=== PATIENT | female | born 1945 | race Caucasian/White ===

== ENCOUNTER 2017-04-29 06:50 | Day surgery (SDC) | payer OTHER ==
[~2017-04-29] VITALS: Ht 157.5 cm; Wt 72.6 kg
[~2017-04-29 06:50] MED LIST: ADULT LOW DOSE81 MG PO; BIOTIN1 M1 PO; CALCIUM 1,0001 EACH PO
--- NOTE | 2017-04-29 08:29 | NUR ---
UP TO BR RETURNED TO BED. IV PATENT.
--- NOTE | 2017-04-29 09:09 | NUR ---
04/29/17 0909 Yumiko Parry 0856 - PT ARRIVED TO PACU. RESPONDS TO STIMULI, MAINTAINING OWN AIRWAY
--- NOTE | 2017-04-29 11:50 | NUR ---
LE 1140: DC INSTRUCTIONS GIVEN TO PATIENT AND SHE VERBALIZES UNDERSTANDING.
--- NOTE | 2017-04-29 14:04 | NUR ---
PT RESTING IN BED, ALERT AND ORIENTED. HAS HAD SURGERY ON R EAR, NOW THIS ON LEFT. SHE IS AFRAID SHE IS LOSING HER HEARING AND REQUESTED PRAYER FOR HEALING. PT HONEST ABOUT HER APPREHENSIONS, FEELS VERY COMFORTABLE WITH DR KYLE. SHE MENTIONED THAT SHE IS NOT READY TO RETIRE-SHE WANTS TO KEEP ON WORKING. GOD BLESS HER
--- NOTE | 2017-05-27 09:33 | OR ---
[facility] [address] [facility] [place], [place] [address] Signed DATE OF PROCEDURE: 04/29/17 PREOPERATIVE DIAGNOSIS: Left tympanic membrane perforation. POSTOPERATIVE DIAGNOSIS: Left tympanic membrane perforation. PROCEDURE PERFORMED: Left paper patch myringoplasty. SURGEON: Chuckie Kyle MD ANESTHESIA: General LMA; Maida Delong CRNA. PREOPERATIVE HISTORY Maribel is a 71-year-old lady with a long history of ear problems. She had a tympanoplasty on the right ear several years ago. 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 She was taken the operating for the above-mentioned procedure. OPERATIVE PROCEDURE AND FINDINGS After informed consent, the patient was taken to the operating room, placed in the supine position where general orotracheal anesthesia was induced. The patient and procedure were verified. The left ear was examined with the operating microscope. There was a small central perforation approximately 10% of the eardrum, healthy middle ear mucosa. Concentrated phenol was applied to the edge of the perforation and a good lanny was obtained. Paper patch was obtained and placed over the perforation with excellent closure, cotton ball to the meatus. The patient was then awakened, extubated, transported to recovery in good condition. No complications. BLOOD LOSS: None. SPECIMENS: None. DRAINS: None. Chuckie Kyle MD GC/Modl Electronically Signed By: CHUCKIE KYLE MD 05/27/17 0933 PATIENT NAME: MARIBEL COTO OPERATIVE REPORT DATE OF : 49 PHYSICIAN: CHUCKIE KYLE MD REPORT #: [id number] REPORT IS CONFIDENTIAL AND NOT TO BE RELEASED WITHOUT AUTHORIZATION [address] [address] Signed /[id number] cc: Danilo Bee MD Electronically Signed By: CHUCKIE KYLE MD 05/27/17 0933 PATIENT NAME: MARIBEL COTO OPERATIVE REPORT DATE OF : 49 PHYSICIAN: CHUCKIE KYLE MD REPORT #: [id number] REPORT IS CONFIDENTIAL AND NOT TO BE RELEASED WITHOUT AUTHORIZATION
== END 2017-04-29 11:50 | disposition home or self-care (01) ==
LOC: DS 06:50
PROVIDERS: Otolaryngology
PROC: 09Q80ZZ Repair Left Tympanic Membrane, Open Approach (ICD-10-PCS; principal; 2017-04-29 07:45)
DX: H72.02 Central perforation of tympanic membrane, left ear (principal); F32.9 Major depressive disorder, single episode, unspecified; Z98.890 Other specified postprocedural states
CPT/HCPCS: 00126; J1100; J2250; J2405; J2704; J3010; J7120

== ENCOUNTER 2025-08-22 07:06 | Inpatient (IN) | payer MEDICARE, OTHER ==
[~2025-08-22] VITALS: Ht 157.5 cm; Wt 73.6 kg
[2025-08-22] MEDS ORDERED: HYDROCODONE/ACETA 5/325 TAB PO ONE ×2 (10:00→17:45)
[2025-08-22] MEDS ORDERED: ONDANSETRON 4 MG TAB ODT SL ONE (10:00)
[2025-08-22] MEDS ORDERED: HYDROCODON-ACE1 EA10 PO (10:24)
[2025-08-22] MEDS ORDERED: CYCLOBENZAPRINE HCL 10 MG TAB PO ONE (10:45)
[2025-08-22 19:33] LABS: BASOPHILS 0.7 % (0.1-1.2); EOSINOPHILS 0.5 % (0.7-5.8); LYMPHOCYTES 14.1 % (19.3-51.7); MCH 28.4 PG (25.6-32.2); MCHC 31.9 g/dL (32.2-35.5); MCV 89.1 fL (79.4-94.8); MONOCYTES 6.7 % (4.7-12.5); NEUTROPHILS 77.8 % (34.0-71.1); RBC 4.58 M/uL (3.93-5.22)
[2025-08-22 19:56] LABS: ALT (SGPT) 17.0 U/L (14-59); AST (SGOT) 20.0 U/L (15-37); GLOMERULAR FILTRATION RATE,EST 85.0 mL/min (>60); PROTEIN, TOTAL 6.7 g/dL (6.4-8.2); UREA NITROGEN 9.0 mg/dL (7-18)
[2025-08-22] MEDS ORDERED: ACETAMINOPHEN 325 MG TAB PO PRN (20:15)
[2025-08-22] MEDS ORDERED: HYDROCODONE/ACETA 5/325 TAB PO PRN ×2 (20:15→23:45)
[2025-08-22 20:53] VITALS: BP 175/89
[2025-08-22] MEDS ORDERED: ADVIL200 MG PO (21:11)
--- NOTE | 2025-08-22 21:43 | NUR ---
pt ARRIVES TO MS FLOOR VIA STRETCHER, TRANSFERRED TO HOSPITAL BED WITH SLIDE SHEET. VS COMPLETE. TWO RN SKIN ASSESSMENT COMPLETE, SCAB NOTED ON RIGHT [place], SKIN OTHERWISE INTACT. pt [place], HAS HEARING AIDE IN RIGHT EAR ONLY. TRAINMASTER IN ROOM. PURSE PLACED IN LOCK BOX. ORIENATATION TO ROOM PROVIDED, CALL LIGHT IN REACH. 2PA TO TURN AND REPOSITION pt, PLACED ON BED MUNROE FOR LARGE VOID AND OFF MUNROE, SANJEEV CARE COMPLETE. PUREWICK PLACED. pt UNABLE TO AMBULATE DUE TO PAIN IN LEFT HIP AND "SPASMS". EDUCATION PROVIDED. BED IN LOW POSITION.
[2025-08-22] MEDS ORDERED: POTASSIUM CHLORIDE 10 MEQ TABCR PO ONE (23:00)
[2025-08-22] MEDS ORDERED: CYCLOBENZAPRINE HCL 10 MG TAB PO PRN (23:45)
[2025-08-23] VITALS (12 sets, daily range): BP systolic 95–148; BP diastolic 48–103
--- NOTE | 2025-08-23 00:01 | NUR ---
Patient arrived to the unit on 08/22/25 at approx 2044. Patient was a 3 person transfer with slide sheet. Patient able to answer orientation questions but is TLINGIT & HAIDA with hearing devices in place. Patient is a poor historian. Patient oriented to room, call light and bed controls. Patient's skin is intact. Patient states she is occasionally incontinent of both bowel and bladder. Periwick placed per patient request as she has 9/10-10/10 pain with any movement. Call light within reach. Bed locked and in the lowest position.
[2025-08-23] MEDS ORDERED: POTASSIUM CHLORIDE 10 MEQ TABCR ONE (04:10)
[2025-08-23 05:52] LABS: BASOPHILS 0.8 % (0.1-1.2); EOSINOPHILS 2.3 % (0.7-5.8); LYMPHOCYTES 25.3 % (19.3-51.7); MCH 28.9 PG (25.6-32.2); MCHC 33.7 g/dL (32.2-35.5); MCV 85.9 fL (79.4-94.8); MONOCYTES 6.9 % (4.7-12.5); NEUTROPHILS 64.4 % (34.0-71.1); RBC 4.25 M/uL (3.93-5.22)
[2025-08-23 06:22] LABS: ALT (SGPT) 18.0 U/L (14-59); AST (SGOT) 21.0 U/L (15-37); GLOMERULAR FILTRATION RATE,EST 83.0 mL/min (>60); PHOSPHORUS, INORGANIC 3.7 mg/dL (2.5-4.9); PROTEIN, TOTAL 6.3 g/dL (6.4-8.2); UREA NITROGEN 9.0 mg/dL (7-18)
--- NOTE | 2025-08-23 07:20 | NUR ---
REPORT RECEIVED FROM ANTHONY GASCA. PATIENT RESTING IN BED TALKING ON HER PHONE AND IS WITHOUT ANY NEEDS AT THIS TIME. CALL LIGHT AND PERSONAL BELONGINGS ARE WITHIN REACH. WHITE BOARD UPDATED.
[2025-08-23] MEDS ORDERED: ENOXAPARIN SODIUM 40 MG/0.4 ML SYR SUB-Q SCH (09:00)
--- NOTE | 2025-08-23 09:12 | NUR ---
V.S. AND I&O DOCUMENTED. PATIENT BRUSHED THEIR TEETH AND WASHED THEIR FACE WITH SET UP ASSISTANCE FROM THIS LEARNING DISABILITIES RESOURCE TEACHER. FRESH ICE WATER PROVIDED.
--- NOTE | 2025-08-23 09:55 | NUR ---
PATIENT MEDICATED PER EMAR. PATIENT IS SITTING UP IN BED AND STATES SHE WOULD LIKE TO GET UP "TO SEE IF I CAN DO IT CAUSE YESTERDAY I WASN'T ABLE TO DO IT." PATIENT STATES SHE WOULD LIKE TO WAIT FOR A BIT UNTIL MEDICATIONS TAKE EFFECT AND THAT SHE WILL CALL STAFF WHEN SHE IS READY. PATIENT IS WITHOUT FURTHER NEEDS AT THIS TIME. CALL LIGHT AND PERSONAL BELONGINGS ARE WITHIN REACH. PATIENT ASSESSMENT COMPLETED.
--- NOTE | 2025-08-23 11:00 | NUR ---
ANTHONY CHAMBERS AND VELVET LOYD ASSISTED PATIENT OFF BEDPAN
--- NOTE | 2025-08-23 11:25 | NUR ---
PATIENT PLACED ON BEDPAN BY THIS RN AND VELVET VANEGAS. PATIENT SAT UP AND STATES SHE WILL CALL WHEN SHE IS FINISHED. CALL LIGHT AND PERSONAL BELONGINGS ARE WITHIN REACH.
[2025-08-23] MEDS ORDERED: PHARMACY RENAL DOSE ADJUSTMENT 1 DOSE MISC PO SCH (12:00)
--- NOTE | 2025-08-23 12:20 | NUR ---
PATIENT SITTING UP IN BED EATING LUNCH WITH HER SON AT BEDSIDE. PATIENT DENIES ANY NEEDS AT THIS TIME. CALL LIGHT AND PERSONAL BELONGINGS ARE WITHIN REACH.
--- NOTE | 2025-08-23 13:10 | NUR ---
PATIENT RESTING IN BED AND IS WITHOUT ANY NEEDS AT THIS TIME. CALL LIGHT AND PERSONAL BELONGINGS ARE WITHIN REACH.
--- NOTE | 2025-08-23 14:57 | NUR ---
PATIENT SITTING UP IN BED ON HER PHONE AND IS WITHOUT ANY NEEDS AT THIS TIME. CALL LIGHT AND PERSONAL BELONGINGS ARE WITHIN REACH.
--- NOTE | 2025-08-23 15:00 | NUR ---
Spoke with pt for a lengthy visit. She is a friend of a friend. Pt recognizes this RN. Pt's memory is poor. She discusses she has been living alone and does well. However, per therapy, pt is unable to hold herself upright in the bed and is unable to walk. Pt states she is very painful on her L side. She also has right sided weakness. Pt does state she had polio as a child. She did not tell the as she states she is a private person. I let her know this is something we really need to let the know and she does agree. Pt declines a SNF and wants to go home to her house. She states her nephew is not working and he will stay with her. Pt states she has 1 step into her home and has grab bars throughout. She has a walker and cane. Will discuss this pt tomorrow with the oncoming physician.
--- NOTE | 2025-08-23 15:10 | NUR ---
VELVET MAYFIELD WALKED INTO PATIENT ROOM TO MEASURE V.S. AND I&O. VELVET MAYFIELD REMOVED LUNCH PLATE FROM BEDROOM AND ORGANIZED ROOM. PATIENT STATED NO FURTHER NEEDS, CALL LIGHT WITHIN REACH.
--- NOTE | 2025-08-23 15:55 | NUR ---
PATIENT RESTING IN BED ON HER PHONE AND DENIES ANY NEEDS AT THIS TIME. CALL LIGHT AND PERSONAL BELONGINGS ARE WITHIN REACH.
[2025-08-23] MEDS ORDERED: TYLENOL EXTRA500 MG PO (16:03)
--- NOTE | 2025-08-23 16:03 | NUR ---
MED REC COMPLETE
--- NOTE | 2025-08-23 16:28 | NUR ---
Spoke with pts friend/emergency contact. Pt. was able to walk and get in and out of her home without assistance. Friend states she would assist her in and out of the car and would walk with her. Kelsea states pt had fall and did not tell anyone. She has not been able to move or get around since. She came to the hospital by ambulance. This is a major change from pts baseline. Will pass this info onto Dr. Shultz.
--- NOTE | 2025-08-23 18:09 | NUR ---
PATIENT MEDICATED PER EMAR. PATIENT IS WITHOUT FURTHER NEEDS AT THIS TIME. CALL LIGHT AND PERSONAL BELONGINGS ARE WITHIN REACH.
--- NOTE | 2025-08-23 19:52 | NUR ---
Patient sitting up in bed with family at bedside. Patient reports some relief of pain with Tylenol given by prior nurse, but states "it's still creeping." Patient would like to wait for her family to leave before taking additional medications. Provided fresh ice water and assisted patient to reposition in bed. Reviewed POC with patient and family- all questions currently answered. Call light within reach. Bed locked and in the lowest position.
--- NOTE | 2025-08-23 20:45 | NUR ---
VS OBTAINED. I&O'S DOCUMENTED. ROOM TIDIED. NO OTHER NEEDS OR CONCERNS AT THIS TIME. CALL LIGHT WITHIN REACH.
[2025-08-24] VITALS (7 sets, daily range): BP systolic 145–167; BP diastolic 83–94
--- NOTE | 2025-08-24 07:00 | NUR ---
REPORT RECEIVED FROM ANTHONY GASCA. PATIENT RESTING IN BED WITH HER EYES CLOSED. EVEN AND UNLABORED RESPIRATIONS NOTED. CALL LIGHT AND PERSONAL BELONGINGS ARE WITHIN REACH.
[2025-08-24 08:25] LABS: GLOMERULAR FILTRATION RATE,EST 89.0 mL/min (>60); UREA NITROGEN 11.0 mg/dL (7-18)
--- NOTE | 2025-08-24 08:52 | NUR ---
PATIENT MEDICATED PER EMAR. PATIENT IS EATING BREAKFAST AND WATCHING TV. PATIENT IS WITHOUT FURTHER NEEDS AT THIS TIME. CALL LIGHT AND PERSONAL BELONGINGS ARE WITHIN REACH.
--- NOTE | 2025-08-24 09:00 | NUR ---
Spoke with pts nephew Mathew. He states he is willing to help his Aunt as much as needed. She must be able to walk before she returns home. I let him know I will speak with her about a SNF today and update her.
--- NOTE | 2025-08-24 10:00 | NUR ---
Spoke with pt. Updated about my talk with her Mathew. She is now agreeable to placement. She would like her chart sent to , [facility], and [facility]. We discussed she needs a 3 night stay before she can admit to a SNF. As it is [place], SNFs are not accepting new pts until Friday. She denies further needs at this time.
--- NOTE | 2025-08-24 10:00 | NUR ---
VELVET VANEGAS IN ROOM ASSISTING PATIENT WITH BEDPAN.
--- NOTE | 2025-08-24 10:28 | NUR ---
PATIENT INDEPENDENTLY BRUSHED THEIR TEETH AND WASHED THEIR FACE WITH SET UP ASSISTANCE. 2PA OFF THE BED MUNROE. SANJEEV CARE DONE AND NEW PUREWICK PLACED AT 1030.
--- NOTE | 2025-08-24 10:30 | NUR ---
Nephew here and has questions. To room and updated I will send the chart to [facility], and [facility] at pts request. She has had family in all three. Will FU on Friday for placement. Pts first choice is [facility]. Pt has to have a 3 night IP stay for medicare to pay for rehab. Pt cont. to c/o of severe pain in her L back and leg. She will work with PT today,but had difficulty sitting with their assistance yesterday.
--- NOTE | 2025-08-24 11:25 | NUR ---
PATIENT MEDICATED PER EMAR. PATIENT'S NEPHEW AT BEDSIDE. PATIENT REPORTS NOT BEING ABLE TO HAVE A BOWEL MOVEMENT AT THIS TIME, BUT DENIES BOWEL CARE MEDICATIONS. PATIENT STATES SHE NORMALLY HAS A BOWEL MOVEMENT DAILY, BUT ALSO HAS NOT BEEN EATING MUCH AND IS NOT SURPRISED SHE HASN'T HAD A BM. PATIENT EDUCATED THAT SHE IS ALSO TAKING PAIN MEDICATION WHICH CAN CAUSE CONSTIPATION. PATIENT STATES SHE WILL TAKE BOWEL CARE MEDICATIONS IF SHE HAS NOT HAD A BOWEL MOVEMENT BY TOMORROW MORNING. PATIENT IS WITHOUT FURTHER NEEDS AT THIS TIME. CALL LIGHT AND PERSONAL BELONGINGS ARE WITHIN REACH.
--- NOTE | 2025-08-24 12:15 | NUR ---
PATIENT SITTING UP IN BED EATING LUNCH WITH FAMLILY AT BEDSIDE. PATIENT DENIES ANY NEEDS AT THIS TIME. CALL LIGHT AND PERSONAL BELONGINGS ARE WITHIN REACH.
--- NOTE | 2025-08-24 13:51 | NUR ---
PATIENT SITTING UP IN BED AND DENIES ANY NEEDS AT THIS TIME. CALL LIGHT AND PERSONAL BELONGINGS ARE WITHIN REACH.
--- NOTE | 2025-08-24 16:27 | NUR ---
PATIENT REQUESTING TO USE THE BEDPAN. THIS RN AND VELVET DE LA ROSA IN ROOM ASSISTING PATIENT. PATIENT PLACED ON BEDPAN AND STATES SHE WILL CALL WHEN SHE IS FINISHED. CALL LIGHT AND PERSONAL BELONGINGS ARE WITHIN REACH.
--- NOTE | 2025-08-24 17:43 | EKG ---
[facility] [address] [facility] [place], [place] [address] Signed Normal sinus rhythm Normal ECG No previous ECGs available Confirmed by Clovis Wright DO ([id number]) on 08/24/2025 5:42:50 PM Electronically Signed By: CLOVIS WRIGHT DO 08/24/25 1743 PATIENT NAME: INDY COTO Electrocardiogram DATE OF : 49 PHYSICIAN: CLOVIS WRIGHT DO REPORT #: [id number] REPORT IS CONFIDENTIAL AND NOT TO BE RELEASED WITHOUT AUTHORIZATION
[2025-08-24] MEDS ORDERED: LABETALOL HCL 20 MG/4 ML VIAL IV PRN (18:15)
--- NOTE | 2025-08-24 18:20 | NUR ---
REPORT RECEIVED FROM ANTHONY COLE. PATIENT SITTING UP IN CHAIR, RESPIRATIONS EVEN AND UNLABORED. PATIENT REPORTS HER PAIN HAS IMPROVED SINCE KELSEY GAVE PAIN MEDICATION, SHE RATES IT 6/10. SHE DENIES ANY NEEDS, CALL LIGHT IN REACH
--- NOTE | 2025-08-24 19:40 | NUR ---
VS OBTAINED AND RECORDED. PATIENT BACK TO BED FROM CHAIR VIA APRIL LIFT, X2 PERSON ASSIST. ASSESSMENT COMPLETE. RESPIRATIONS EVEN AND UNLABORED. PATIENT REPORTS 5/10 PAIN, GIVEN FRESH WATER, DENIES ANY NEEDS, CALL LIGHT IN REACH
--- NOTE | 2025-08-24 23:17 | NUR ---
ROUNDED ON PATIENT, RESPIRAITONS EVEN AND UNLABORED. PRN PAIN MEDICATION GIVEN TO PATIENT PER REQUEST FOR 5/10 PAIN. NO FURTHER NEEDS, CALL LIGHT IN REACH
[2025-08-25] VITALS (8 sets, daily range): BP systolic 104–153; BP diastolic 62–101
--- NOTE | 2025-08-25 01:40 | NUR ---
ROUNDED ON PATIENT, RESTING WITH EYES CLOSED, RESPIRATIONS EVEN AND UNLABORED. NO NEEDS, CALL LIGHT IN REACH
--- NOTE | 2025-08-25 02:55 | NUR ---
ROUNDED ON PATIENT, PATIENT RESTING WITH EYES CLOSED, RESPIRATIONS EVEN AND UNLABORED. NO NEEDS, CALL LIGHT IN REACH
--- NOTE | 2025-08-25 05:33 | NUR ---
ROUNDED ON PATIENT, VS OBTAINED AND RECORDED. PRN TYLENOL GIVEN PER REQUEST FOR 6/10 PAIN. PLACED ON BED MUNROE TO HAVE BOWEL MOVEMENT PER REQUEST OF PATIENT. FRESH WATER PROVIDED. NO OTHER NEEDS
--- NOTE | 2025-08-25 07:00 | NUR ---
REPORT RECEIVED FROM ANTHONY BONNER. PATIENT RESTING IN BED AND REPORTS PAIN IN HER LEFT LEG. PATIENT MEDICATED PER EMAR. PATIENT DENIES FURTHER NEEDS AT THIS TIME. CALL LIGHT AND PERSONAL BELONGINGS ARE WITHIN REACH.
--- NOTE | 2025-08-25 07:30 | NUR ---
THIS DRUM PLATER IN TO DO MORNING ROUNDS. PATIENT STATES SHE IS WET. SANJEEV CARE, SKIN CARE, AM CARE, LINEN CHANGE DONE. PATIENT SET UP FOR BREAKFAST. WHITEBOARD UPDATED. CALL LIGHT IN REACH. NO FURTHER NEEDS AT THIS TIME.
--- NOTE | 2025-08-25 08:45 | NUR ---
PATIENT MEDICATED PER EMAR. PATIENT RESTING IN BED AND DENIES FURTHER NEEDS AT THIS TIME. CALL LIGHT AND PERSONAL BELONGINGS ARE WITHIN REACH. PATIENT ASSESSMENT COMPLETED.
--- NOTE | 2025-08-25 09:52 | NUR ---
PATIENT IN BED WATCHING TV AT THIS TIME. VITALS AND I&O'S DONE AND CHARTED. CALL LIGHT IN REACH. FRESH WTER GIVEN. NO FURTHER NEEDS AT THIS TIME.
--- NOTE | 2025-08-25 10:05 | NUR ---
PATIENT RESTING IN BED ON HER PHONE AND IS WITHOUT ANY NEEDS AT THIS TIME. CALL LIGHT AND PERSONAL BELONGINGS ARE WITHIN REACH.
--- NOTE | 2025-08-25 12:21 | NUR ---
PATIENT SITTING UP IN BED EATING LUNCH. FRESH ICE WATER AND ICE PROVIDED FOR PATIENT'S PERSONAL SODA. PATIENT IS WITHOUT FURHTER NEEDS AT THIS TIME. CALL LIGHT AND PERSONAL BELONGINGS ARE WITHIN REACH.
[2025-08-25] MEDS ORDERED: GABAPENTIN 300 MG CAP PO SCH (15:00)
--- NOTE | 2025-08-25 15:22 | NUR ---
PATIENT MEDICATED PER EMAR. PATIENT SITTING UP IN BED TALKING ON HER PHONE AND IS WITHOUT ANY NEEDS AT THIS TIME. CALL LIGHT AND PERSONAL BELONGINGS ARE WITHIN REACH.
--- NOTE | 2025-08-25 16:45 | NUR ---
PATIENT RESTING IN BED WITH VISITORS AT BEDSIDE. PATIENT IS WITHOUT ANY NEEDS AT THIS TIME. CALL LIGHT AND PERSONAL BELONGINGS ARE WITHIN REACH.
--- NOTE | 2025-08-25 19:45 | NUR ---
VERBAL REPORT RECEIVED FROM KELSEY CRUZ. PATIENT IS RESTING IN BED AWAKE AT THIS TIME. DENIES ANY NEEDS AT THIS TIME. CALL LIGHT WITHIN REACH.
--- NOTE | 2025-08-25 20:54 | NUR ---
ETHYLENE PLANT OPERATOR OBTAINED VITALS AND I&O. PT STATES NO NEEDS AT THIS TIME. CALL LIGHT WITHIN REACH.
[2025-08-25] MEDS ORDERED: POLYETHYLENE GLYCOL 3350 1 PACKET PO SCH (21:00)
[2025-08-25] MEDS ORDERED: SENNOSIDES/DOCUSATE 1 EA TAB PO SCH (21:00)
--- NOTE | 2025-08-25 21:29 | NUR ---
ASSESSMENT COMPLETE. PATIENT COMPLAINS OF 6/10 LEFT LEG PAIN, PRN PAIN MEDICATION GIVEN (SEE EMAR). FRESH ICE WATER PROVIDED PER PATIENT REQUEST. PATIENT IS AWAKE AND ALERT, SITTING UP WATCHING TV. NO FURTHER NEEDS AT THIS TIME. CALL LIGHT WITHIN REACH.
[2025-08-26] VITALS (8 sets, daily range): BP systolic 126–150; BP diastolic 78–92
--- NOTE | 2025-08-26 00:03 | NUR ---
PATIENT IS RESTING IN BED EYES CLOSED, RESPIRATIONS EVEN AND UNLABORED. CALL LIGHT WITHIN REACH. NO NEEDS AT THIS TIME.
--- NOTE | 2025-08-26 02:11 | NUR ---
PATIENT RESTING IN BED EYES CLOSED AT THIS TIME, RESPIRATIONS EVEN AND UNLABORED. NO NEEDS AT THIS TIME. CALL LIGHT WITHIN REACH.
--- NOTE | 2025-08-26 04:35 | NUR ---
PATIENT CALLS COMPLAINING OF 8/10 LLE PAIN, PRN PAIN MEDICATION GIVEN (SEE EMAR). NO FURTHER NEEDS AT THIS TIME. CALL LIGHT WITHIN REACH.
--- NOTE | 2025-08-26 05:17 | NUR ---
PATIENT IS RESTING IN BED EYES CLOSED, RESPIRATIONS EVEN AND UNLABORED. CALL LIGHT WITHIN REACH.
--- NOTE | 2025-08-26 05:21 | NUR ---
PATIENT RESTING IN BED AT THIS TIME EYES CLOSED RESPIRATIONS EVEN AND UNLABORED. NO NEEDS AT THIS TIME. CALL LIGHT WITHIN REACH.
--- NOTE | 2025-08-26 05:27 | NUR ---
NETWORK DESKTOP SUPPORT SPECIALIST OBTAINED VITALS AND I&O. PT STATES NO NEEDS AT THIS TIME. CALL LIGHT WITHIN REACH AND BED ALARM ON.
--- NOTE | 2025-08-26 05:39 | NUR ---
NEW PUREWICK PLACED, SANJEEV CARE PERFROMED. FRESH ICE WATER PROVIDED. NO FURTHER NEEDS AT THIS TIME. PATIENT IS SITTIN GUP IN BED WATCHING TV. CALL LIGHT WITHIN REACH.
--- NOTE | 2025-08-26 06:19 | NUR ---
PATIENT BLADDER SCANNED DUE TO LOW URINE OUTPUT, 650ML NOTED. PATIENT ENCOURAGED TO USE BEDSIDE COMMODE. PATIENT URINATED 40OML IN PUREWICK CANISTER. ENCOURAGED PATIENT TO CONTINUE TO TRY TO URINATE. CALL LIGHT WITHIN REACH. BED ALARM ON FOR PATIENT SAFETY. PATIENT SITTING UP IN BED AT THIS TIME.
--- NOTE | 2025-08-26 07:15 | NUR ---
RECIEVED REPORT FROM ANTHONY TAPIA. PT IS RESTING IN BED WITH EYES CLOSED, RR EVEN AND UNLABORED. CALL LIGHT AND PERSONAL BELONGINGS ARE WITHIN REACH.
--- NOTE | 2025-08-26 09:04 | NUR ---
PT SITTING UP IN BED WITH BREAKFAST TRAY. MORNING MEDICATIONS ADMINISTRED PER THE EMAR. WARM WASHCLOTH PROVIDED. FRESH ICE WATER BROUGHT. CALL LIGHT AND PERSONAL BELONGINGS ARE WITHIN REACH.
[2025-08-26] MEDS ORDERED: LIDOCAINE HCL 4% 1 EACH PATCH TD SCH (10:05)
--- NOTE | 2025-08-26 10:05 | NUR ---
UR CLINICAL REVIEW: 2 MN MARCE, MEETS INPT FOR LEG PAIN, FALL INABILITY TO MOBILIZE WITHOUT 2 PERSON MAX ASSIST, PAINFUL REQUIRING MED MANAGEMENT, PT/OT EVAL AND TREAT MEDICARE INPT 08/26/25 @ 1005 ORDER MATCHES REG NO AUTH REQUIRED PER MEDICARE RULES. PLAN TO DC TO SNF FRIDAY NEXT
--- NOTE | 2025-08-26 11:39 | NUR ---
THERAPY RECCOMENDS SNF. INTO SEE PATIENT. PATIENT AGREEABLE TO SNF. PATIENT CHOICE LETTER GIVEN. PATIENT WOULD LIKE CHART SENT TO [facility].
--- NOTE | 2025-08-26 12:16 | NUR ---
PT SITTING UP IN CHAIR EATING LUNCH. PT REPORTS THAT THE LIDOCAINE PATCH SEEMS TO HAVE RELIEVED HER DISCOMFORT IN HER LEFT KNEE. PT DENIES ANY NEEDS AT THIS TIME. CALL LIGHT AND PERSONAL BELONGINGS ARE WITHIN REACH.
--- NOTE | 2025-08-26 13:37 | NUR ---
PT SITTING IN CHAIR WITH EYES OPEN, RR EVEN AND UNLABORED. THIS RN AND CARROTER YUE CONFIRMED PUREWICK PLACEMENT AND REPOSITIONED PT IN CHAIR. PT WITH CALL LIGHT AND PERSONAL BELONGINGS WITHIN REACH, AND DENIES ANY NEEDS AT THIS TIME.
--- NOTE | 2025-08-26 13:57 | NUR ---
PT REMAINS UP IN THE CHAIR VS TAKEN AND I"S AND O'S DONE PT HAS NO COMPLAINTS AT THIS TIME
[2025-08-26] MEDS ORDERED: GABAPENTIN 400 MG CAP PO SCH (15:00)
--- NOTE | 2025-08-26 18:40 | NUR ---
PT BACK IN BED VIA APRIL LIFT 2 PERSON ASSIST.
--- NOTE | 2025-08-26 20:09 | NUR ---
VERBAL REPORT RECEIVED FROM MERYL CRUZ. PATIENT IS AWAKE IN BED AT THIS TIME. DENIES ANY NEEDS AT THIS TIME. CALL LIGHT WITHIN REACH.
--- NOTE | 2025-08-26 20:50 | NUR ---
GLUE SPREADER OBTAINED VITALS AND I&O. PT STATES NO NEEDS AT THIS TIME. CALL LIGHT WITHIN REACH.
[2025-08-26] MEDS ORDERED: LIDOCAINE PATCH REMOVAL 1 EA TD SCH (21:00)
--- NOTE | 2025-08-26 22:05 | NUR ---
MEDICATION ADMINISTRATION COMPLETE. PATIENT COMPLAINS OF 6/10 LLE PAIN, PRN PAIN MEDICATION GIVEN (SEE EMAR). PATIENT IS AWAKE AND ALERT SITTING UP IN BED. FRESH ICE WATER PROVIDED. BED ALARM ON FOR PATIENT SAFETY. REPOSITIONED IN BED FOR COMFORT. NO FUTHER NEEDS AT THIS TIME.
--- NOTE | 2025-08-26 23:57 | NUR ---
PATIENT RESTING IN BED EYES CLOSED, RESPIRATIONS EVEN AND UNLABORED. CALL LIGHT WITHIN REACH. BED ALARM ON FOR PATIENT SAFETY.
[2025-08-27] VITALS (10 sets, daily range): BP systolic 133–154; BP diastolic 62–98
--- NOTE | 2025-08-27 01:51 | NUR ---
PATIENT RESTING IN BED EYES CLOSED, RESPIRATIONS EVEN AND UNLABORED. BED ALARM ON FOR PATIENT SAFETY. CALL LIGHT WITHIN REACH.
--- NOTE | 2025-08-27 03:21 | NUR ---
PATIENT REPOSITIONED IN BED FOR COMFORT. PILLOW UNDER LEFT HIP FOR OFFLOADING. ICE PACK PLACED WITH PILLOWCASE PER PATIENT REQUEST. NO FURTHER NEEDS AT THIS TIME. BED ALARM ON FOR PATIENT SAFETY. CALL LIGHT WITHIN REACH.
--- NOTE | 2025-08-27 05:44 | NUR ---
DIRECTOR OF PERIOPERATIVE SERVICES OBTAINED VITALS AND I&O. IBANCK CHNAGED. PT STATES NO FURTHER NEEDS AT THIS TIME. ICE WATER REFILLED. CALL LIGHT WITHIN REACH.
--- NOTE | 2025-08-27 05:48 | NUR ---
PATIENT COMPLAINS OF 6/10 LLE PAIN, PRN PAIN MEDICATION GIVEN (SEE EMAR). PATIENT REPOSITIONED IN BED FOR COMFORT. FRESH ICE WATER PROVIDED. VSS. NO FURTHER NEEDS AT THIS TIME. CALL LIGHT WITHIN REACH.
--- NOTE | 2025-08-27 07:16 | NUR ---
RECIEVED REPORT FROM ANTHONY TAPIA. PT IS RESTING IN BED WITH EYES CLOSED. RR EVEN AND UNLABORED. CALL LIGHT AND PERSONAL BELONGINGS ARE WITHIN REACH.
--- NOTE | 2025-08-27 08:10 | NUR ---
PT SITTING UP IN BED WITH BREAKFAST TRAY, CALL LIGHT AND PERSONAL BELONGINGS. DENIES ANY NEEDS AT THIS TIME.
--- NOTE | 2025-08-27 09:02 | NUR ---
PT SITTING UP IN BED WITH TRAY, ON PHONE. CALL LIGHT AND PERSONAL BELONGINGS ARE WITHIN REACH.
[2025-08-27] MEDS ORDERED: FAMOTIDINE 20 MG TAB PO SCH (11:22)
--- NOTE | 2025-08-27 12:20 | NUR ---
THIS RN INTO ROOM TO GIVE AFTERNOON MEDS - SEE OCT. PT REQUESTING AGAIN SOMETHING FOR BOWEL MOVEMENT, INFORMED PRIMARY RN ALREADY ORDERED A SUPPOSITORY, WAITING FOR PHARMACY TO VERIFY AND WELL BE BACK IN ONCE THAT IS VERIFIED AND GIVE. PT VERBALIZED UNDERSTANDING AND AGREES. CALL LIGHT WITHIN REACH, DENIES ANY OTHER NEEDS AT THIS TIME.
--- NOTE | 2025-08-27 12:50 | NUR ---
PT SITTING UP IN BED FINISHING LUNCH TRAY. PT REQUESTING TO RECIEIVE SUPPOSITORY ONCE LUNCH TRAY IS CLEARED. CALL LIGHT AND PERSONAL BELONGINGS ARE WITHIN REACH/
--- NOTE | 2025-08-27 13:40 | NUR ---
PT RESTING IN BED WITH EYES CLOSED. HOB IS ELEVATED AND RR EVEN AND UNLABORED. CALL LIGHT AND PERSONAL BELONGINGS ARE WITHIN REACH.
--- NOTE | 2025-08-27 15:01 | NUR ---
PT SITTING UP IN BED TALKING ON PHONE. CALL LIGHT AND PERSONAL BELONGINGS ARE WITHIN REACH.
[2025-08-27] MEDS ORDERED: CYANOCOBALAMIN 1,000 MCG TAB PO SCH (16:00)
--- NOTE | 2025-08-27 17:49 | NUR ---
PT RESTING AT THIS TIME VS DONE
--- NOTE | 2025-08-27 19:25 | NUR ---
RECIEVED REPORT FROM ANTHONY SHETH. PT LAYING IN BED REQUESTING THE PHONE AND HER CHARGERS, GIVEN. PT REPORTS NO PAIN AT THIS TIME. WHITEBOARD UPDATED, NO OTHER NEEDS, CALL LIGHT WITHIN REACH, BED AT LOWEST POSITION.
--- NOTE | 2025-08-27 20:45 | NUR ---
PT LAYING IN BED, REQUESTS APPLE JUICE FOR MIRALAX, COMPLETED. VS TAKEN, I&OS CHARTED, FRESH WATER GIVEN. ASSESSMENT COMPLETED, NO OTHER NEEDS AT THIS TIME, CALL LIGHT WITHIN REACH.
--- NOTE | 2025-08-27 21:10 | NUR ---
VS TAKEN, I&OS CHARTED, CLARK CATH EMPTIED. CLARK CARE COMPLETED. PTS LINENS CHANGED, BRIEF CHANGED D/T CLARK LEAKING. NO OTHER NEEDS AT THIS TIME, CALL LIGHT WITHIN REACH, PT REPOSITIONED, LIGHTS LEFT ON PER PT REQUEST. PT ON 2L NC WITH CPOX AT BEDSIDE.
--- NOTE | 2025-08-27 22:50 | NUR ---
PT LAYING IN BED WATCHING TV, REPORTS NO NEEDS AT THIS TIME. CALL LIGHT WITHIN REACH, BED AT LOWEST POSITION.
[2025-08-28] VITALS (10 sets, daily range): BP systolic 139–152; BP diastolic 80–99
--- NOTE | 2025-08-28 00:24 | NUR ---
PT REPORTING PAIN 7/10 IN LLEG, PRN PAIN MED GIVE. PT REPOSITIONED, NO OTHER NEEDS AT THIS TIME, CALL LIGHT WITHIN REACH.
--- NOTE | 2025-08-28 01:11 | NUR ---
PTS PURWICK CHANGED, BRIEF CHANGED, SKIN CLEANSED. PT REPORTS NO OTHER NEEDS AT THIS TIME, CALL LIGHT WITHIN REACH, LIGHTS LOWERED, PT REPOSITIONED.
--- NOTE | 2025-08-28 03:24 | NUR ---
PT LAYING IN BED, EYES CLOSED, UNLABORED BREATHING. CALL LIGHT WITHIN REACH.
[2025-08-28 05:11] LABS: BASOPHILS 0.9 % (0.1-1.2); EOSINOPHILS 12.1 % (0.7-5.8); LYMPHOCYTES 23.8 % (19.3-51.7); MCH 28.9 PG (25.6-32.2); MCHC 33.2 g/dL (32.2-35.5); MCV 87.0 fL (79.4-94.8); MONOCYTES 6.1 % (4.7-12.5); NEUTROPHILS 56.9 % (34.0-71.1); RBC 4.47 M/uL (3.93-5.22)
--- NOTE | 2025-08-28 05:13 | NUR ---
VS TAKEN, PT REPORTING KNEE IS BEGGINGING TO ACHE, PT AWARE THE PRN PAIN MED IS NOT DUE FOR ANOTHER HOUR, PT AGREES THAT THIS WORKS FOR HER. NO OTHER NEEDS AT THIS TIME, CALL LIGHT WITHIN REACH.
[2025-08-28 05:35] LABS: GLOMERULAR FILTRATION RATE,EST 88.0 mL/min (>60); UREA NITROGEN 16.0 mg/dL (7-18)
--- NOTE | 2025-08-28 06:47 | NUR ---
PT REPORTIN PAIN 6/10 LLE, PRN PAIN MED GIVEN, NO OTHER NEEDS AT THIS TIME, CALL LIGHT WITHIN REACH
--- NOTE | 2025-08-28 07:05 | NUR ---
RECIEVED REPORT FROM ANTHONY JAIMES. PT IS RESTING IN BED WITH EYES OPEN. RR EVEN AND UNLABORED. CALL LIGHT AND PERSONAL BELONGINGS ARE WITHIN REACH.
--- NOTE | 2025-08-28 08:52 | NUR ---
PT SITTING UP IN BED WITH BREAKFAST TRAY, LISTENING TO MUSIC ON PHONE. CALL LIGHT IS WITHIN REACH. THIS RN TO ADMINISTER MORNING MEDS AND COMPLETE ASSESSMENT. PT REPORTS THAT SHE WILL BE REFUSING MORNING DOSE OF SENNA AND MIRALAX.
--- NOTE | 2025-08-28 09:10 | NUR ---
VELVET RODRIGUEZ, IN ROOM TO CHANGE PUREWICK AND ASSIST WITH MORNING CARES.
--- NOTE | 2025-08-28 10:05 | NUR ---
PT RESTING IN BED WITH EYES CLOSED. RR EVEN AND UNLABORED. CALL LIGHT AND PERSONAL BELONGINGS ARE WITHIN REACH.
--- NOTE | 2025-08-28 11:40 | NUR ---
PT RESTING IN BED, ON PHONE. RR EVEN AND UNLABORED. CALL LIGHT AND PERSONAL BELONGINGS ARE WITHIN REACH.
--- NOTE | 2025-08-28 12:01 | NUR ---
THIS RN AND VELVET RODRIGUEZ, IN ROOM TO MOVE PT UP IN BED AND REPOSITIONED. PT SAT UP IN BED, LUNCH TRAY ARRANGED. PT WITH CALL LIGHT AND PERSONAL BELONGINGS, DENIES ANY NEEDS AT THIS TIME.
--- NOTE | 2025-08-28 13:28 | NUR ---
PT SITTING UP IN BED TALKING ON PHONE. LUNCH TRAY IS AT BEDSIDE, AND CALL LIGHT AND PERSONAL BELONGINGS ARE WITHIN REACH.
--- NOTE | 2025-08-28 13:40 | NUR ---
HOURLY ROUNDING PATIENT LAYING IN BED, NO REQUEST AT THIS TIME CALL LIGHT PLACED WITHIN REACH
--- NOTE | 2025-08-28 14:48 | NUR ---
PT SITTING UP IN CHAIR WATCHING TV. PT DENIES NEEDS AT THIS ITME. CALL LIGHT AND PERSONAL NEEDS ARE WIHTIN REACH.
--- NOTE | 2025-08-28 16:38 | NUR ---
PT SITTING UP IN CHAIR WITH EYES OPEN, PLAYING ON PHONE. RR EVEN AND UNLABORED. CALL LIGHT AND PERSONAL BELONGINGS ARE WITHIN REACH.
--- NOTE | 2025-08-28 17:26 | NUR ---
PT SITTING UP IN CHAIR EATING DINNER. CALL LIGHT AND PERSONAL BELONGINGS ARE WITHIN REACH.
--- NOTE | 2025-08-28 17:54 | NUR ---
HOURLY ROUNDING PATIENT SITTING UP IN RECLINER, REQUESTED TO BE BOOSTED UP IN HER CHAIR EXSPECTING VISITORS. CALL LIGHT HAS BEEN PLACED WITHIN REACH
--- NOTE | 2025-08-28 19:43 | NUR ---
1500 DOSE OF GABAPENTIN MISSED. NOTIFIED CANDLE WRAPPERJAISON. NOTIFIED BY CANDLE WRAPPER.
--- NOTE | 2025-08-28 19:45 | NUR ---
Notified by ANTHONY Healy that the 1500 gabapentin dose was missed, d/t oversight. PC To Dr. Rubi to notify him of this mistake. Per Dr. Rubi, okay to just administer the 2100 dose on time and skip the missed dose. No further orders obtained. maintenance mechanic 2nd shift sole layer Erika notified.
--- NOTE | 2025-08-28 19:47 | NUR ---
RECIEVED REPORT FROM ANTHONY SHETH. PT UP TO CHAIR, APRIL LIFTED TO BED, BRIEF CHANGED, SKIN CLEANSED, PURWICK CHANGED. NO OTHER NEEDS AT THIS TIME, CALL LIGHT WITHIN REACH, BED AT LOWEST POSITION, WHITEBOARD UPDATED.
--- NOTE | 2025-08-28 20:35 | NUR ---
ROLF RN AT BEDSIDE TAKIGN VITALS AND CHARTING I&OS, NO NEEDS REPORTED AT THIS TIME, CALL LIGHT WITHIN REACH.
--- NOTE | 2025-08-28 21:11 | NUR ---
PT REPORTING PAIN 4/10 IN LLE, PRN PAIN MED GIVEN. ORDERED MEDS GIVEN, LIDOCAINE PATCH REMOVED. NO OTHER NEEDS AT THIS TIME, CALL LIGHT WITHIN REACH, FRESH WATER GIVEN, PT REPOSITIONED AND LIGHTS OFF.
--- NOTE | 2025-08-28 23:35 | NUR ---
PT CALLED THINKING HER BRIEF WAS WET, ASSESSED AND C/D/I. NO OTHER NEEDS AT THIS TIME, LIGHTS OFF, CALL LIGHT WITHIN REACH.
--- NOTE | 2025-08-29 01:37 | NUR ---
PT LAYING IN BED, EYES CLOSED, UNLABORED BREATHING. NO NEEDS AT THIS TIME, CALL LIGHT WITHIN REACH.
--- NOTE | 2025-08-29 03:39 | NUR ---
PT LAYING IN BED, EYES CLOSED UNLABORED BREATHING. NO NEEDS AT THIS TIME, CALL LIGHT WITHIN REACH, BED AT LOWEST POSITION.
--- NOTE | 2025-08-29 04:08 | NUR ---
NEW PURWICK PLACED ON PT, NEW OPEN TEAR/SCRATCH NOTICED ON PTS LEFT BUTTOCK, ALLEVYN PLACED AT THIS TIME. NO OTHER NEEDS REPORTED, CALL LIGHT WITHIN REACH, BED AT LOWEST POSITION.
[2025-08-29 06:03] VITALS: BP 146/90
[2025-08-29 06:05] VITALS: BP 146/90
--- NOTE | 2025-08-29 06:07 | NUR ---
PT LAYING IN BED, REPORTS PAIN IN LEFT KNEE 6/10, PRN PAIN MED GIVEN. PT REPOSITIONED IN BED, VS TAKEN, PURWICK CANISTER EMPTIED, I&OS CHARTED. FRESH WATER GIVEN, NO OTHER NEEDS AT THIS ITME, CALL LIGHT WITHIN REACH.
--- NOTE | 2025-08-29 07:31 | NUR ---
PT AWAKE WATCHING TV AT TIME OF SHIFT REPORT. STATES SHE NEEDS TO TOILET REFUSES UP TO THE BSC STATING HER LEG IS BURNING AND HURTING MORE THAN PREVIOUS. ASSISTED WITH BEDPAN. FRESH H20 TO BEDSIDE CALL LIGHT IN REACH.
--- NOTE | 2025-08-29 07:35 | NUR ---
UPDATED CHART NOTES SENT TO DEMETRIO AND OLEGARIO ADDISON.
--- NOTE | 2025-08-29 08:53 | NUR ---
PT ETS A SMALL AMOUNT OF MORNING MEAL DOING SELF CARES NOW BRUSHING TEETH WASHING FACE. PT WAS UNABLE TO PASS STOOL, SHE DID AGREE TO TAKE HER SENNA REFUSES MIRALAX.
[2025-08-29] MEDS ORDERED: GABAPENTIN400 MG PO (09:18)
[2025-08-29] MEDS ORDERED: HEALTHYLAX17 GM PO (09:18)
[2025-08-29] MEDS ORDERED: FAMOTIDINE20 MG PO (09:18)
[2025-08-29] MEDS ORDERED: STIMULANT LAXA1 EACH PO (09:18)
[2025-08-29] MEDS ORDERED: HYDROCODON-ACE1 EA10 PO (09:18)
[2025-08-29] MEDS ORDERED: BISACODYL10 MG PR (09:18)
--- NOTE | 2025-08-29 09:24 | NUR ---
PATIENT AGREEABLE TO [facility]. IMM LETTER COMPLETED. PATIENT WC VAN AT 1100. ORDERS FAXED OVER. NO FUTHER CM NEEDS.
[2025-08-29 10:15] VITALS: BP 116/97
[2025-08-29 10:19] VITALS: BP 116/97
--- NOTE | 2025-08-29 10:19 | NUR ---
PERSONAL CARES COMPLETE. STAFF ASSIST TO PREPARE FOR TRANSPORT.
--- NOTE | 2025-08-29 11:37 | NUR ---
PT ABLE TO STAND PIVOT TRANSFER TO TOILET TO VOID. DRESSED AND ALL PERSONAL ITEMS GATHERED PT TRANSPORT TO [facility]
== END 2025-08-29 11:15 | DRG 556 ==
LOC: ED 07:06 → MS 07:07
PROVIDERS: Emergency Medicine; Student in an Organized Health Care Education/Training Program; ADMIT Family Medicine; ATTEND Hospitalist
DX: M79.605 Pain in left leg (principal); R53.1 Weakness; G62.9 Polyneuropathy, unspecified; E53.8 Deficiency of other specified B group vitamins; R62.7 Adult failure to thrive; E87.6 Hypokalemia; K59.00 Constipation, unspecified; Z91.81 History of falling; Z68.28 Body mass index [BMI] 28.0-28.9, adult
CPT/HCPCS: 36415; 51798; 73502; 73552; 80048; 80053; 82607; 83036; 83735; 84100; 85025; 93005; 93010; 96372; 97110; 97162; 97165; 97530; 97535; 99285; A9270; G0378; J1650